=== PATIENT | female | born 1970 | race Caucasian/White ===

== ENCOUNTER → 2019-12-21 | Outpatient (REF) | payer OTHER | LOC: M LAB REF 15:47 | PROVIDERS: ATTEND Physician Assistant | DX: N39.0 Urinary tract infection, site not specified (principal) ==

== ENCOUNTER 2023-01-07 07:48 | Day surgery (SDC) | payer BC, OTHER ==
[~2023-01-07] VITALS: Ht 170.2 cm; Wt 112.9 kg
[~2023-01-07 07:48] MED LIST: HYDR12.55 PO; IRBE300T7 PO; NS 1,000 ML IV ONE; SEMA2.4P; THERTAB52 PO
[2023-01-07] MEDS ORDERED: LIDOCAINE 2% 100MG/5ML SDV (FOR ANES.) As Ordered ONE (09:08)
[2023-01-07] MEDS ORDERED: propofoL 200 MG/20 ML VIAL As Ordered ONE (09:08)
[2023-01-07 09:24] VITALS: TEMP 97.7
[2023-01-07 09:50] VITALS: BP 127/74; O2SAT 100
== END 2023-01-07 10:01 | disposition home or self-care (01) ==
LOC: M OPP 07:48
PROVIDERS: ATTEND Surgery
DX: Z12.11 Encounter for screening for malignant neoplasm of colon (principal); K57.30 Diverticulosis of large intestine without perforation or abscess without bleeding; K64.0 First degree hemorrhoids; Z88.0 Allergy status to penicillin; Z79.1 Long term (current) use of non-steroidal anti-inflammatories (NSAID); Z79.899 Other long term (current) drug therapy

== ENCOUNTER → 2024-05-18 | Outpatient (CLI) | payer BC ==
[~2024-05-18] MED LIST changes: +IRBE300T25 PO; -IRBE300T7 PO; -NS 1,000 ML IV ONE
== END ==
LOC: M WHC 07:10
PROVIDERS: ATTEND Family Medicine
DX: N92.0 Excessive and frequent menstruation with regular cycle (principal); N85.2 Hypertrophy of uterus; N83.291 Other ovarian cyst, right side